=== PATIENT | male | born 1995 | race Asian ===

== ENCOUNTER 2017-06-26 02:04 | Emergency (ER) | payer OTHER ==
[~2017-06-26] VITALS: Ht 172.7 cm; Wt 71.5 kg
[2017-06-26 02:05] VITALS: TEMP 36.4; Ht 172.7 cm; Wt 71.5 kg
[2017-06-26] MEDS ORDERED: METF-384 PO (02:52)
[2017-06-26] MEDS ORDERED: SODIUM CHLORIDE 0.9% 1000ML 1,000 ML IV ONE (03:15)
[2017-06-26 03:32] LABS: ALT/SGPT 54 U/L (12-78); AST/SGOT 22 U/L (15-37); BLOOD UREA NITROGEN 10 mg/dl (7-18); CALCIUM 8.3 mg/dl (8.5-10.1); CARBON DIOXIDE 28 mmol/L (21-32); CREATININE 0.77 mg/dl (0.60-1.40); GLUCOSE 150 mg/dl (70-99); POTASSIUM 3.2 mmol/L (3.5-5.1); SODIUM 140 mmol/L (136-145)
[2017-06-26 03:42] LABS: ALKALINE PHOSPHATASE 82 U/L (45-117); CKMB 0.6 ng/ml (0.5-3.6); TOTAL PROTEIN 7.4 gm/dl (6.4-8.2)
[2017-06-26 03:53] LABS: BASO % 0.3 %; BASO ABS # 0.03 K/uL (0-0.2); EOS % 2.1 %; EOS ABS # 0.19 K/uL (0-0.5); IG# 0.05 K/uL (0.00-0.02); LYMPH ABS # 3.58 K/uL (1.2-3.4); MEAN CELL VOLUME 82.8 fL (80-100); MEAN CORPUSCULAR HEMOGLOBIN 29.6 pg (25-34); MEAN CORPUSCULAR HGB CONC 35.7 g/dl (32-36); MONO % 8.7 %; MONO ABS # 0.78 K/uL (0.11-0.59); NEUT % 48.3 %; NEUT ABS # 4.31 K/uL (1.4-6.5); PLATELET COUNT 303 K/uL (130-400); WHITE BLOOD COUNT 8.94 K/uL (4.8-10.8)
[2017-06-26 05:34] VITALS: PULSE 79; O2SAT 99
[2017-06-26 05:43] VITALS: BP 119/83
--- NOTE | 2017-06-26 06:25 | DIAGNOSTIC IMAGING REPORT ---
HEAD CT NONCONTRAST CT DOSE: HISTORY: Syncope. Head/left side neck pain TECHNIQUE: Multiaxial CT images of the head were performed without the use of intravenous contrast. Automated exposure control was utilized for this study. A dose lowering technique was utilized adhering to the principles of ALARA. Comparison: None. Findings: Fluid level within the right measures size. Partial opacification of the ethmoid air cells. The calvarium and skull base are intact. The ventricles and sulci are within normal limits. There is no mass, hematoma, midline shift, or acute infarct. Impression: No acute intracranial abnormality. Right maxillary sinusitis. Electronically signed by: Hira Lester M.D. 06/26/2017 6:24 AM Dictated Date/Time: 06/26/2017 6:22 AM
--- NOTE | 2017-06-26 07:12 | DIAGNOSTIC IMAGING REPORT ---
CERVICAL SPINE CT CT DOSE: 1024.92 mGy.cm HISTORY: Syncope. Head/left side neck pain TECHNIQUE: Multiaxial CT images of the cervical spine were performed and reformatted in the sagittal and coronal plane without the use of contrast. A dose lowering technique was utilized adhering to the principles of ALARA. COMPARISON: None. FINDINGS: No fractures. No subluxation. Prevertebral soft tissues and the C1-C2 interval are intact. No pneumothorax. IMPRESSION: No fractures within the cervical spine. Electronically signed by: Hira Lester M.D. 06/26/2017 7:11 AM Dictated Date/Time: 06/26/2017 7:07 AM
--- NOTE | 2017-06-26 23:43 | EMERGENCY ROOM VISIT NOTE ---
History First contact with patient: 02:55 Chief Complaint: SYNCOPE Stated Complaint: ILLNESS Nursing Triage Summary: Woke up with abdominal pain, epigastric, felt like "before you puke", went to the bathroom and voided, no BM, no emesis. After this he had a syncopal episode , falling to the floor, does not believe he struck anything on the way down. Tried to push himself off the floor and had weakness and tingling sensation in bilateral arms. This resolved over a couple minutes. Abdominal pain also gone. Only symptoms at this time is sharp pain in the neck, "electric feeling". Denies tenderness to palpation of cervical/thoracic spine. Left lower back abrasion. No neuro deficits noted in extremities. Drank night, no alcohol or drugs tonight. History of Present Illness The patient is a 21 year old male who presents to the Emergency Room with complaints of syncopal episode that occurred just prior to arrival. Evidently the patient got up from sleep tonight feeling some epigastric discomfort. He felt the need to use the bathroom, went to the bathroom, and urinated. He states he stood up and was standing over the sink. The next thing he recalls was waking up on the ground. He is unsure if he hit his head or his neck but he is having some left-sided neck discomfort. No blood or bleeding is noted. The patient is unsure how long he was down, but he believes only for a few minutes. He felt dazed after the fall and it took him a few moments to stand up. His abdominal discomfort has resolved. He does not have chest pain, chest tightness, shortness of breath or palpitations before or after the event. The patient is a type II diabetic at this medication controlled. He did check his sugar immediately after the episode, and it was in the 130s. He has not been feeling ill lately and rates his current discomfort a 3/10. Review of Systems More than 10 systems were reviewed and otherwise negative with the exception of history of present illness. Past Medical/Surgical History History of type 2 diabetes Family History No pertinent family history Social History Smoking Status: Never Smoker Occupation Status: [employer] student Current/Historical Medications Scheduled Metformin Hcl (Glucophage), 1,000 MG PO DAILY Physical Exam Vital Signs Date Time Temp Pulse Resp B/P (MAP) Pulse Ox O2 Delivery O2 Flow Rate FiO2 06/26/17 05:43 119/83 06/26/17 05:34 79 15 99 06/26/17 05:19 72 100 06/26/17 05:04 71 15 99 06/26/17 04:59 73 16 98 06/26/17 04:44 72 18 100 06/26/17 04:09 81 17 100 Room Air 06/26/17 04:00 121/78 06/26/17 03:54 80 16 99 06/26/17 03:39 78 16 98 06/26/17 03:36 118/82 06/26/17 03:24 67 15 100 06/26/17 03:09 77 18 97 06/26/17 03:00 133/79 06/26/17 02:54 70 15 99 06/26/17 02:49 70 14 99 06/26/17 02:34 72 14 100 06/26/17 02:30 125/87 06/26/17 02:19 69 20 100 06/26/17 02:14 71 16 100 Room Air 06/26/17 02:09 70 113/77 86 116/86 79 122/83 06/26/17 02:08 122/83 06/26/17 02:05 36.4 67 15 133/81 99 Room Air 06/26/17 02:05 71 Physical Exam VITALS: Vitals are noted on the nurse's note and reviewed by myself. Vital signs stable. GENERAL: Well-developed, well-nourished, male, who is in no acute distress and resting comfortably. Patient is cooperative with the examination. HEAD: Normocephalic atraumatic. EARS: External ear normal. External auditory canals clear, tympanic membranes pearly roberts without erythema or effusion bilaterally. EYES: Pupils equal round and reactive to light and accommodation. Conjunctivae without injection, sclerae without icterus. Extraocular movements intact. NOSE: Patent, turbinates without inflammation or discharge. MOUTH: Mucous membranes moist. Tonsils are not enlarged. Pharynx without erythema, blood, or exudate. Uvula midline. Airway patent. NECK: Supple without nuchal rigidity. No lymphadenopathy. No thyromegaly. Cervical spine is with mild left-sided tenderness. No midline tenderness noted. HEART: Regular rate and rhythm without murmurs gallops or rubs. LUNGS: Clear to auscultation bilaterally without wheezes, rales or rhonchi. No retractions or accessory muscle use. ABDOMEN: Positive normal bowel sounds x 4. Soft, nontender, without masses or organomegaly. No guarding or rebound tenderness. MUSCULOSKELETAL: No muscle atrophy, erythema, or edema noted. Full range of motion without joint tenderness in all extremities. NEURO: Patient was alert and oriented to person place and time. CN II through XII grossly intact. No focal neurological deficits. Deep tendon reflexes 2+ throughout. Medical Decision & Procedures ER Provider Diagnostic Interpretation: HEAD CT NONCONTRAST CT DOSE: HISTORY: Syncope. Head/left side neck pain TECHNIQUE: Multiaxial CT images of the head were performed without the use of intravenous contrast. Automated exposure control was utilized for this study. A dose lowering technique was utilized adhering to the principles of ALARA. Comparison: None. Findings: Fluid level within the right measures size. Partial opacification of the ethmoid air cells. The calvarium and skull base are intact. The ventricles and sulci are within normal limits. There is no mass, hematoma, midline shift, or acute infarct. Impression: No acute intracranial abnormality. Right maxillary sinusitis. CERVICAL SPINE CT CT DOSE: 1024.92 mGy.cm HISTORY: Syncope. Head/left side neck pain TECHNIQUE: Multiaxial CT images of the cervical spine were performed and reformatted in the sagittal and coronal plane without the use of contrast. A dose lowering technique was utilized adhering to the principles of ALARA. COMPARISON: None. FINDINGS: No fractures. No subluxation. Prevertebral soft tissues and the C1-C2 interval are intact. No pneumothorax. IMPRESSION: No fractures within the cervical spine. Laboratory Results 06/26/17 02:20 Red Blood Count 5.07, Mean Corpuscular Volume 82.8, Mean Corpuscular Hemoglobin 29.6, Mean Corpuscular Hemoglobin Concent 35.7, Neutrophils (%) (Auto) 48.3, Lymphocytes (%) (Auto) 40.0, Monocytes (%) (Auto) 8.7, Eosinophils (%) (Auto) 2.1, Basophils (%) (Auto) 0.3, Neutrophils # (Auto) 4.31, Lymphocytes # (Auto) 3.58, Monocytes # (Auto) 0.78, Eosinophils # (Auto) 0.19, Basophils # (Auto) 0.03 06/26/17 02:20 Test 06/26/17 02:20 06/26/17 04:30 White Blood Count 8.94 K/uL (4.8-10.8) Red Blood Count 5.07 M/uL (4.7-6.1) Hemoglobin 15.0 g/dL (14.0-18.0) Hematocrit 42.0 % (42-52) Mean Corpuscular Volume 82.8 fL (80-100) Mean Corpuscular Hemoglobin 29.6 pg (25-34) Mean Corpuscular Hemoglobin Concent 35.7 g/dl (32-36) Platelet Count 303 K/uL (130-400) Neutrophils (%) (Auto) 48.3 % Lymphocytes (%) (Auto) 40.0 % Monocytes (%) (Auto) 8.7 % Eosinophils (%) (Auto) 2.1 % Basophils (%) (Auto) 0.3 % Neutrophils # (Auto) 4.31 K/uL (1.4-6.5) Lymphocytes # (Auto) 3.58 K/uL (1.2-3.4) Monocytes # (Auto) 0.78 K/uL (0.11-0.59) Eosinophils # (Auto) 0.19 K/uL (0-0.5) Basophils # (Auto) 0.03 K/uL (0-0.2) Immature Granulocyte % (Auto) 0.6 % Immature Granulocyte # (Auto) 0.05 K/uL (0.00-0.02) Anion Gap 6.0 mmol/L (3-11) Est Creatinine Clear Calc Drug Dose 145.5 ml/min Estimated GFR () 149.3 Estimated GFR (Non- 128.8 BUN/Creatinine Ratio 13.2 (10-20) Calcium Level 8.3 mg/dl (8.5-10.1) Total Bilirubin 0.3 mg/dl (0.2-1) Aspartate Amino Transf (AST/SGOT) 22 U/L (15-37) Alanine Aminotransferase (ALT/SGPT) 54 U/L (12-78) Alkaline Phosphatase 82 U/L (45-117) Total Creatine Kinase 97 U/L (39-308) Creatine Kinase MB 0.6 ng/ml (0.5-3.6) Creatine Kinase MB Ratio 0.6 (0-3.0) Troponin I < 0.015 ng/ml (0-0.045) Total Protein 7.4 gm/dl (6.4-8.2) Albumin 4.0 gm/dl (3.4-5.0) Globulin 3.4 gm/dl (2.5-4.0) Albumin/Globulin Ratio 1.2 (0.9-2) Thyroid Stimulating Hormone (TSH) 1.730 uIu/ml (0.300-4.500) Urine Color YELLOW Urine Appearance CLEAR (CLEAR) Urine pH 6.5 (4.5-7.5) Urine Specific Hewitt 1.021 (1.000-1.030) Urine Protein NEG (NEG) Urine Glucose (UA) 3+ (NEG) Urine Ketones TRACE (NEG) Urine Occult Blood NEG (NEG) Urine Nitrite NEG (NEG) Urine Bilirubin NEG (NEG) Urine Urobilinogen NEG (NEG) Urine Leukocyte Esterase NEG (NEG) Urine WBC (Auto) 1-5 /hpf (0-5) Urine RBC (Auto) 0-4 /hpf (0-4) Urine Hyaline Casts (Auto) 1-5 /lpf (0-5) Urine Epithelial Cells (Auto) 5-10 /lpf (0-5) Urine Bacteria (Auto) NEG (NEG) Medications Administered Medications (Trade) Dose Ordered Sig/Bjorn Route Start Time Stop Time Status Last Admin Dose Admin Sodium Chloride 1,000 ml @ 999 mls/hr Q1H1M ONCE IV 06/26/17 03:15 06/26/17 04:15 DC 06/26/17 03:21 999 MLS/HR ED Course Physical exam and history were performed. Nursing notes, EMR, and Medication List were personally reviewed. Patient appears to have had a syncopal episode in the bathroom after urinating today. On examination he appears well and certainly nontoxic. He does not have or signs of trauma. EKG was performed and was normal sinus rhythm at 70 beats per minute without ischemia or ectopy per my interpretation. IV access was established and labs were obtained. The patient was hydrated as above. He was placed on a electronic device monitor. CT scans of the head and neck were performed. The patient's blood work is as above and was reviewed. He does not have a significantly elevated blood cell count or gross anemia, bandemia, or significant electrolyte imbalance. Transaminases are nondiagnostic. Sugar is not low. Urine is without evidence of infection. TSH is euthyroid state. CK is normal. The patient's CT scans are as above and do not show evidence of acute fracture or bleed. The patient remained in stable condition throughout his emergency Department stay. I discussed options for care with patient and he was comfortable with discharge home. I suspect his symptoms are vagal or possibly related to dehydration/micturition syncope. The patient will need to remain well hydrated and follow with [facility] [address] for the next few days. He was otherwise asked to come back to the ER with any new, worsening, or concerning symptoms. He voiced understanding and rated his discomfort a 0/10 at the time of departure. The chart was completed utilizing [employer] Speech Voice Recognition Software. Grammatical errors, random word insertions, pronoun errors, and incomplete sentences are an occasional consequence of this system due to software limitations, ambient noise, and hardware issues. Any formal questions or concerns about the content, text, or information contained within the body of this dictation should be directly addressed to the provider for clarification. . Medical Decision Differential diagnosis: Etiologies such as vasovagal event, infection, hypoglycemia, electrolyte abnormalities, cardiac sources, intracerebral event, toxicologic, neurologic, as well as others were entertained. Impression Primary Impression: Syncope and collapse Departure Information Dispostion Home / Self-Care Condition GOOD Forms HOME CARE DOCUMENTATION FORM, IMPORTANT VISIT INFORMATION Patient Instructions My [facility] Additional Instructions You were seen and evaluated today on an emergency basis only. This is not a substitute for, or an effort to provide, complete comprehensive medical care. It is not possible to recognize and treat all injuries or illnesses in a single emergency department visit. For this reason it is recommended that you followup with [facility] this week for any ongoing or persistent symptoms. Drink plenty of water and remain well hydrated. You are welcome to return to the emergency department anytime with new, worsening, or concerning symptoms.
== END 2017-06-26 05:46 | disposition home or self-care (01) ==
LOC: EDBD 02:04 → C.EDB 02:06
DX: R55 Syncope and collapse (principal); E11.9 Type 2 diabetes mellitus without complications; Z79.84 Long term (current) use of oral hypoglycemic drugs